=== PATIENT | male | born 1940 | race Caucasian/White ===

== ENCOUNTER 2023-02-23 13:43 | Inpatient (IN) | payer MEDICARE ==
[2023-02-23 14:44] LABS: Hematocrit 19.9 % (42.0-52.0); Hemoglobin 6.9 g/dL (14.0-18.0); Manual Diff?? YES; Mean Corpuscular HGB CONC 34.7 g/dL (32.0-36.0); Mean Corpuscular Hemoglobin 30.5 pg (27.0-31.0); Mean Corpuscular Volume 88.1 fl (78.0-98.0); Mean Platelet Volume 11.2 fL (7.4-10.4); RBC Distribution Width 15.9 % (11.5-14.5); Red Blood Cell (RBC) Count 2.26 mill/uL (4.70-6.10); White Blood Cell (WBC) Count 0.4 10x3/uL (4.8-10.8)
[2023-02-23 14:46] LABS: Platelet Count 14 10x3/uL (130-400)
[2023-02-23 14:47] LABS: Delete Auto Diff?? YES
[2023-02-23 15:05] LABS: ALT (SGPT) 17 U/L (8-55); AST (SGOT) 21 U/L (5-34); Albumin 3.4 g/dL (3.4-4.8); Alkaline Phosphatase 145 U/L (40-110); Anion Gap 15 mmol/L (10-20); BUN (Urea Nitrogen) 15 mg/dL (8.4-25.7); Calc. Creatinine Clearance 0 mL/min (70-130); Calcium 8.8 mg/dL (7.8-10.44); Carbon Dioxide 22 mmol/L (23-31); Chloride 99 mmol/L (98-107); Estimated GFR 86; Globulin 3.1 g/dL (2.4-3.5); Glucose 114 mg/dL (83-110); Lipase 5 U/L (8-78); Potassium 3.4 mmol/L (3.5-5.1); Protein, Total 6.5 g/dL (5.8-8.1); Sodium 133 mmol/L (136-145)
[2023-02-23 15:08] LABS: Troponin I Less than 0.010 ng/mL (< 0.028)
[2023-02-23 15:22] LABS: Anisocytosis SLIGHT = 6-15 cells HPF (0-5); CellaVision Operator ID lab.sh2; Dohle Bodies MODERATE; Large Platelets 17.5 % (0-5); Lymphocytes 62 % (21-51); Macrocytosis SLIGHT = 6-15 cells HPF (0-5); Monocytes 20 % (0-10); Neutrophil 19 % (42-75); Nucleated RBC (Manual Ct) 3 % (0); Ovalocytes SLIGHT = 2-5 cells HPF (0-1); Platelet Adequacy Comment Significant decrease; Polychromasia SLIGHT = 2-3 cells HPF (0-2); Smudge Cells 10.3 %; Tear Drops SLIGHT = 2-5 cells HPF (0-1); Total Cell Count 97; Vacuoles MODERATE
[2023-02-23 16:34] LABS: Bilirubin Negative (Negative); Blood, Urine Negative (Negative); CAUTI Indications for Culture Pelvic or flank pain; Clarity Clear (Clear); Glucose, Urine (Dipstick) Normal (Negative); Ketone, Urine Negative (Negative); Leukocyte Negative Leu/uL (Negative); Nitrite Negative (Negative); Protein, Urine (Dipstick) 30 mg/dL (Neg-Trace); RBC/HPF 0-3 HPF (0-3); Specific Gravity, Urine 1.016 (1.002-1.036); Squamous Epithelial 0-3 HPF (0-3); Urobilinogen Normal mg/dL (Less than 2)
[2023-02-23 16:55] LABS: Bacteria/HPF 1+ HPF (None Seen)
[2023-02-23 16:56] LABS: Urine Culture Reflex No No
[2023-02-23] MEDS ORDERED: Acetaminophen 325 MG TAB PO PRN (18:16)
[2023-02-23] MEDS ORDERED: HYDROcodone/Acetaminophen 5/325 mg Tablet PO PRN (18:16)
[2023-02-24 06:50] LABS: Hematocrit 19.9 % (42.0-52.0); Hemoglobin 6.9 g/dL (14.0-18.0); Manual Diff?? YES; Mean Corpuscular HGB CONC 34.7 g/dL (32.0-36.0); Mean Corpuscular Hemoglobin 30.1 pg (27.0-31.0); Mean Corpuscular Volume 86.9 fl (78.0-98.0); Mean Platelet Volume 9.9 fL (7.4-10.4); RBC Distribution Width 15.9 % (11.5-14.5); Red Blood Cell (RBC) Count 2.29 mill/uL (4.70-6.10); White Blood Cell (WBC) Count 0.4 10x3/uL (4.8-10.8)
[2023-02-24 07:06] LABS: Anion Gap 13 mmol/L (10-20); BUN (Urea Nitrogen) 13 mg/dL (8.4-25.7); Calc. Creatinine Clearance 87 mL/min (70-130); Calcium 8.2 mg/dL (7.8-10.44); Carbon Dioxide 24 mmol/L (23-31); Chloride 102 mmol/L (98-107); Estimated GFR 90; Glucose 106 mg/dL (83-110); Potassium 3.2 mmol/L (3.5-5.1); Sodium 136 mmol/L (136-145)
[2023-02-24 08:35] LABS: Delete Auto Diff?? YES; Platelet Count 37 10x3/uL (130-400)
[2023-02-24 08:37] LABS: Critical Call w/ Read Back NUR.JSA1@0837
[2023-02-24 09:18] LABS: Anisocytosis SLIGHT = 6-15 cells HPF (0-5); Band 2 % (5-11); CellaVision Operator ID LAB.CMB; Large Platelets 21.8 % (0-5); Lymphocytes 66 % (21-51); Microcytosis MODERATE=15-30 cells HPF (0-5); Monocytes 29 % (0-10); Platelet Adequacy Comment Significant decrease; Polychromasia SLIGHT = 2-3 cells HPF (0-2); Reactive Lymphocytes 4 % (0-10); Target Cells SLIGHT = 2-5 cells HPF (0-1)
[2023-02-24] MEDS ORDERED: Electrolyte Replacement Protocol 1 EACH FS ONE (15:25)
[2023-02-24] MEDS ORDERED: Electrolyte Replacement Protocol FS PRN (15:30)
[2023-02-24] MEDS: Midodrine HCl 5 MG TAB PO SCH ×2 (15:59→21:08)
[2023-02-24 18:07] LABS: Hematocrit 24.9 % (42.0-52.0); Manual Diff?? YES; Mean Corpuscular HGB CONC 36.1 g/dL (32.0-36.0); Mean Corpuscular Hemoglobin 31.1 pg (27.0-31.0); Mean Corpuscular Volume 86.2 fl (78.0-98.0); Mean Platelet Volume 9.5 fL (7.4-10.4); RBC Distribution Width 15.5 % (11.5-14.5); Red Blood Cell (RBC) Count 2.89 mill/uL (4.70-6.10); White Blood Cell (WBC) Count 0.5 10x3/uL (4.8-10.8)
[2023-02-24 18:08] LABS: Platelet Count 34 10x3/uL (130-400)
[2023-02-24 18:09] LABS: Delete Auto Diff?? YES
[2023-02-24 18:31] LABS: CellaVision Operator ID LAB.KB; Large Platelets 9.8 % (0-5); Lymphocytes 59 % (21-51); Monocytes 23 % (0-10); Neutrophil 13 % (42-75); Platelet Adequacy Comment Platelets Decreased; Polychromasia SLIGHT = 2-3 cells HPF (0-2); Reactive Lymphocytes 6 % (0-10); Smudge Cells 3.9 %; Target Cells SLIGHT = 2-5 cells HPF (0-1); Total Cell Count 102
[2023-02-24] MEDS ORDERED: Non-Formulary Item 1 EACH (Voriconazole [Voriconazole] 200 MG Tablet) PO SCH (21:00)
[2023-02-24] MEDS: Tamsulosin HCl 0.4 MG CAP PO SCH (21:08)
[2023-02-24] MEDS: Voriconazole 50 MG TAB PO SCH (21:09)
[2023-02-25 06:04] LABS: Hematocrit 24.6 % (42.0-52.0); Hemoglobin 8.6 g/dL (14.0-18.0); Manual Diff?? YES; Mean Corpuscular Hemoglobin 30.5 pg (27.0-31.0); Mean Corpuscular Volume 87.2 fl (78.0-98.0); Mean Platelet Volume 10.1 fL (7.4-10.4); RBC Distribution Width 15.2 % (11.5-14.5); Red Blood Cell (RBC) Count 2.82 mill/uL (4.70-6.10); White Blood Cell (WBC) Count 0.4 10x3/uL (4.8-10.8)
[2023-02-25 06:09] LABS: Platelet Count 34 10x3/uL (130-400)
[2023-02-25 06:10] LABS: Delete Auto Diff?? YES
[2023-02-25 06:26] LABS: Anion Gap 12 mmol/L (10-20); BUN (Urea Nitrogen) 13 mg/dL (8.4-25.7); Calc. Creatinine Clearance 89 mL/min (70-130); Calcium 8.3 mg/dL (7.8-10.44); Carbon Dioxide 23 mmol/L (23-31); Chloride 103 mmol/L (98-107); Estimated GFR 91; Glucose 108 mg/dL (83-110); Magnesium 1.8 mg/dL (1.6-2.6); Potassium 3.5 mmol/L (3.5-5.1); Sodium 134 mmol/L (136-145)
[2023-02-25 06:40] LABS: Band 4 % (5-11); CellaVision Operator ID LAB.GE; Large Platelets 43.8 % (0-5); Lymphocytes 58 % (21-51); Monocytes 17 % (0-10); Neutrophil 17 % (42-75); Nucleated RBC (Manual Ct) 2 % (0); Platelet Adequacy Comment Platelets Decreased; Polychromasia SLIGHT = 2-3 cells HPF (0-2); Reactive Lymphocytes 2 % (0-10); Total Cell Count 48; Vacuoles SLIGHT
[2023-02-25] MEDS ORDERED: Magnesium 2 GM/50 ML(in water) 2 GM in Premix 1 BAG IVPB SCH (08:00)
[2023-02-25] MEDS ORDERED: Potassium Chloride 20 MEQ TAB PO SCH (08:00)
[2023-02-25] MEDS: valACYclovir 500 MG TAB PO SCH (09:11)
[2023-02-25] MEDS: Voriconazole 50 MG TAB PO SCH ×2 (09:11→21:27)
[2023-02-25] MEDS: Midodrine HCl 5 MG TAB PO SCH ×3 (09:11→21:26)
[2023-02-25 09:13] VITALS: BMI 26.2
[2023-02-25 14:35] LABS: Potassium 3.4 mmol/L (3.5-5.1)
[2023-02-25] MEDS: Tamsulosin HCl 0.4 MG CAP PO SCH (21:26)
[2023-02-26 05:23] LABS: Hematocrit 25.4 % (42.0-52.0); Hemoglobin 8.7 g/dL (14.0-18.0); Manual Diff?? YES; Mean Corpuscular HGB CONC 34.3 g/dL (32.0-36.0); Mean Corpuscular Volume 87.6 fl (78.0-98.0); Mean Platelet Volume 10.6 fL (7.4-10.4); RBC Distribution Width 15.2 % (11.5-14.5); White Blood Cell (WBC) Count 0.7 10x3/uL (4.8-10.8)
[2023-02-26 05:37] LABS: Delete Auto Diff?? YES; Platelet Count 38 10x3/uL (130-400)
[2023-02-26 05:39] LABS: Critical Call w/ Read Back NUR.SAP1@0538
[2023-02-26 05:58] LABS: Anion Gap 16 mmol/L (10-20); BUN (Urea Nitrogen) 12 mg/dL (8.4-25.7); Calc. Creatinine Clearance 87 mL/min (70-130); Calcium 8.3 mg/dL (7.8-10.44); Carbon Dioxide 22 mmol/L (23-31); Chloride 101 mmol/L (98-107); Estimated GFR 90; Glucose 105 mg/dL (83-110); Magnesium 3.6 mg/dL (1.6-2.6); Potassium 3.7 mmol/L (3.5-5.1); Sodium 135 mmol/L (136-145)
[2023-02-26 07:02] LABS: Anisocytosis MODERATE=16-30 cells HPF (0-5); CellaVision Operator ID LAB.JMM; Lymphocytes 74 % (21-51); Metamyelocyte 1 % (0-0); Monocytes 9 % (0-10); Neutrophil 16 % (42-75); Nucleated RBC (Manual Ct) 1 % (0); Platelet Adequacy Comment Platelets Decreased; Polychromasia SLIGHT = 2-3 cells HPF (0-2); Smudge Cells 36.4 %; Total Cell Count 77
[2023-02-26] MEDS: Voriconazole 50 MG TAB PO SCH ×2 (08:52→20:37)
[2023-02-26] MEDS: Midodrine HCl 5 MG TAB PO SCH ×3 (08:52→20:37)
[2023-02-26] MEDS: valACYclovir 500 MG TAB PO SCH (08:53)
[2023-02-26] MEDS: Tamsulosin HCl 0.4 MG CAP PO SCH (20:37)
[2023-02-27] MEDS: Midodrine HCl 5 MG TAB PO SCH ×3 (08:45→20:55)
[2023-02-27] MEDS: valACYclovir 500 MG TAB PO SCH (08:46)
[2023-02-27] MEDS: Voriconazole 50 MG TAB PO SCH ×2 (08:46→20:56)
[2023-02-27] MEDS: Tamsulosin HCl 0.4 MG CAP PO SCH (20:56)
[2023-02-28 06:46] LABS: Hematocrit 23.2 % (42.0-52.0); Manual Diff?? YES; Mean Corpuscular HGB CONC 34.5 g/dL (32.0-36.0); Mean Corpuscular Hemoglobin 30.4 pg (27.0-31.0); Mean Corpuscular Volume 88.2 fl (78.0-98.0); Mean Platelet Volume 10.8 fL (7.4-10.4); RBC Distribution Width 14.8 % (11.5-14.5); Red Blood Cell (RBC) Count 2.63 mill/uL (4.70-6.10); White Blood Cell (WBC) Count 0.4 10x3/uL (4.8-10.8)
[2023-02-28 07:07] LABS: Delete Auto Diff?? YES; Platelet Count 44 10x3/uL (130-400)
[2023-02-28 07:12] LABS: ALT (SGPT) 21 U/L (8-55); AST (SGOT) 25 U/L (5-34); Alkaline Phosphatase 117 U/L (40-110); Anion Gap 14 mmol/L (10-20); BUN (Urea Nitrogen) 12 mg/dL (8.4-25.7); Calc. Creatinine Clearance 88 mL/min (70-130); Calcium 8.4 mg/dL (7.8-10.44); Carbon Dioxide 22 mmol/L (23-31); Chloride 100 mmol/L (98-107); Estimated GFR 91; Globulin 2.8 g/dL (2.4-3.5); Glucose 101 mg/dL (83-110); Potassium 4.1 mmol/L (3.5-5.1); Protein, Total 5.8 g/dL (5.8-8.1); Sodium 132 mmol/L (136-145)
[2023-02-28 08:03] LABS: Band 2 % (5-11); CellaVision Operator ID LAB.KW3; Large Platelets 102.4 % (0-5); Lymphocytes 52 % (21-51); Monocytes 21 % (0-10); Neutrophil 17 % (42-75); Platelet Adequacy Comment Significant decrease; Reactive Lymphocytes 7 % (0-10); Total Cell Count 42
[2023-02-28 09:14] LABS: RBC Morph Comment Within Normal Limits
[2023-02-28 09:35] VITALS: BP 122/71; TEMP 99.6
[2023-02-28] MEDS: Voriconazole 50 MG TAB PO SCH (10:12)
[2023-02-28] MEDS: Midodrine HCl 5 MG TAB PO SCH ×2 (10:12→15:50)
[2023-02-28] MEDS: valACYclovir 500 MG TAB PO SCH (10:12)
== END 2023-02-28 17:44 | disposition hospice, home (50) | DRG 809 ==
LOC: ERS 13:43 → MSONC 16:58
PROVIDERS: ADMIT Internal Medicine; ATTEND Emergency Medicine
PROC: 30233N1 Transfusion of Nonautologous Red Blood Cells into Peripheral Vein, Percutaneous Approach (ICD-10-PCS; principal; 2023-02-23)
PROC: 6A550Z2 Pheresis of Platelets, Single (ICD-10-PCS; 2023-02-23)
DX: D61.818 Other pancytopenia (principal); C92.00 Acute myeloblastic leukemia, not having achieved remission; Z66 Do not resuscitate; N40.0 Benign prostatic hyperplasia without lower urinary tract symptoms; I95.9 Hypotension, unspecified; E87.6 Hypokalemia; Z92.21 Personal history of antineoplastic chemotherapy
CPT/HCPCS: 36415; 36430; 71045; 80048; 80053; 81001; 83690; 83735; 84484; 85025; 86850; 86900; 86901; 93005; J3475; P9016; P9035